=== PATIENT | male | born 1990 | race Hispanic/Latino ===

== ENCOUNTER 2018-08-01 12:53 | Emergency (ER) | payer SELFPAY ==
[2018-08-01] MEDS ORDERED: KETOROLAC 30 MG/ML INJ ONE (14:15)
--- NOTE | 2018-08-01 14:41 | RAD REPORT ---
EXAM DESCRIPTION: CT - Stone Protocol - 08/01/2018 2:35 pm CLINICAL HISTORY: Flank pain. Flank pain COMPARISON: CT ABD PELVIS W CONTRAST dated 01/12/2014 TECHNIQUE: Axial images were obtained without oral or IV contrast. Lack of contrast limits solid org an and vascular assessment. The [id number] spans the entirety of the system partially obscuring uppermost abdomen and lung bases. Coronal reformatted images were obtained and reviewed. All CT scans are performed using dose optimization technique as appropriate and may include automated exposure control or mA/KV adjustment according to patient size. FINDINGS: The lower lung riley are clear. Imaged portions of the liver and spleen show no suspicious findings on non-contrast imaging. The panc reas and adrenal glands are normal. No pathologic lymphadenopathy in the abdomen or pelvis. No urinary tract stones or obstructive uropathy. No bowel obstruction, free air, free fluid or abscess. Normal appendix noted. No significant bony abnormality. Small fat containing right inguinal hernia. IMPRESSION: No urinary tract stones or obstructive uropathy.
[2018-08-01 15:03] LABS: Urine Blood TRACE (NEG); Urine Glucose NEGATIVE (NEG); Urine Protein 1+ (NEG); Urine pH 8.5 (5.0-7.0)
--- NOTE | 2018-08-01 16:12 | ER ---
Nurse's Notes [facility] Name: Jim Cope Jr Age: 27 yrs Sex: Male : 1990 Arrival Date: 08/01/2018 Time: 12:57 Bed 30 Private MD: Diagnosis: Cough;Low back pain Presentation: 08/01 12:58 Presenting complaint: Patient states: low back pain, denies dysuria, injury. Transition sv of care: patient was not received from another setting of care. Onset of symptoms was August 01, 2018. Care prior to arrival: None. 12:58 Method Of Arrival: Ambulatory sv 12:58 Acuity: SILVESTRE 4 sv 15:21 Risk Assessment: Do you want to hurt yourself or someone else? Patient reports no mg2 desire to harm self or others. Initial Sepsis Screen: Does the patient meet any 2 criteria? No. Patient's initial sepsis screen is negative. Does the patient have a suspected source of infection? No. Patient's initial sepsis screen is negative. Historical: - Allergies: 12:59 No Known Allergies; sv - PSHx: 12:59 Facial surgery; Hand surgery; sv - Immunization history:: Flu vaccine is not up to date. - Social history:: Smoking status: Patient uses tobacco products, smokes one-half pack cigarettes per day. - Ebola Screening: : No symptoms or risks identified at this time. Screenin:21 Abuse screen: Denies threats or abuse. Denies injuries from another. Nutritional mg2 screening: No deficits noted. Tuberculosis screening: No symptoms or risk factors identified. Fall Risk None identified. Assessment: 15:24 General: Appears in no apparent distress. comfortable, Behavior is calm, cooperative. mg2 Pain: Complains of pain in mid back area Pain does not radiate. Pain currently is 2 out of 10 on a pain scale. Quality of pain is described as aching, Pain began gradually. Neuro: Level of Consciousness is awake, alert, obeys commands, Oriented to person, place, time, situation. Cardiovascular: Capillary refill < 3 seconds Patient's skin is warm and dry. Respiratory: Airway is patent Respiratory effort is even, unlabored, Respiratory pattern is regular, symmetrical. GI: No signs and/or symptoms were reported involving the gastrointestinal system. : No signs and/or symptoms were reported regarding the genitourinary system. EENT: No signs and/or symptoms were reported regarding the EENT system. Derm: Skin is intact, is healthy with good turgor, Skin is pink, warm \T\ dry. normal. Musculoskeletal: Reports pain in mid back area. 16:27 Reassessment: Patient appears in no apparent distress at this time. Patient and/or mg2 family updated on plan of care and expected duration. Pain level reassessed. Patient is alert, oriented x 3, equal unlabored respirations, skin warm/dry/pink. Vital Signs: 12:59 BP 124 / 73; Pulse 98; Resp 20; Temp 99.2; Pulse Ox 99% ; Weight 83.01 kg; Height 5 ft. sv 9 in. (175.26 cm); Pain 7/10; 15:23 BP 130 / 62; Pulse 89; Resp 18; Pulse Ox 98% on R/A; Pain 2/10; mg2 16:27 BP 125 / 78; Pulse 80; Resp 18; Pulse Ox 100% on R/A; Pain 0/10; mg2 12:59 Body Mass Index 27.02 (83.01 kg, 175.26 cm) sv ED Course: 12:57 Patient arrived in ED. mr 12:59 Triage completed. sv 13:00 Arm band placed on Patient placed in an exam room, Patient notified of wait time. sv 13:22 Masoud Jordan, ABNER is Primary Nurse. ja1 13:40 Marisa Alfonso FNP-C is PHCP. snw 13:40 Ezekiel Brice MD is Attending Physician. snw 14:30 Urine collected: clean catch specimen, clear, nevin colored, Amount Voided: 60mL. jp3 14:34 CT completed. Patient tolerated procedure well. Patient moved to CT via wheelchair. vm2 Patient moved back from CT. 14:51 Stone Protocol In Process Unspecified. EDMS 15:21 Patient has correct armband on for positive identification. Pulse ox on. NIBP on. mg2 15:21 No provider procedures requiring assistance completed. Patient did not have IV access mg2 during this emergency room visit. Administered Medications: 14:08 Drug: TORadol 60 mg Route: IM; Site: left deltoid; ja1 14:39 Follow up: Response: No adverse reaction; Pain is decreased ja1 Outcome: 16:04 Discharge ordered by . snw 16:28 Discharged to home ambulatory, with family. mg2 16:28 Condition: stable 16:28 Discharge instructions given to patient, family, Instructed on discharge instructions, follow up and referral plans. medication usage, Demonstrated understanding of instructions, follow-up care, medications, Prescriptions given X 2. 16:28 Patient left the ED. mg2 Signatures: Dispatcher [employer] EDIndira Rosado RN RN sv Marisa Alfonso, JIG GRINDER SET UP OPERATOR-C JIG GRINDER SET UP OPERATOR-Csnw GonzalezNadiya mr AraizaMarimar 2 Masoud Jordan, ABNER RN ja1 Bill Lobo RN RN mg2 Chavo Fregoso jp3
--- NOTE | 2018-08-01 16:13 | EDPHYS ---
Physician Documentation [facility] Name: Jim Cope Jr Age: 27 yrs Sex: Male : 1990 Arrival Date: 08/01/2018 Time: 12:57 Bed 30 Private MD: ED Physician Ezekiel Brice HPI: 08/01 13:58 This 27 yrs old Male presents to ER via Ambulatory with complaints of Back snw Pain. 13:58 The patient presents with pain that is acute, with no known mechanism of injury. The snw symptoms are located in the mid back area. Onset: The symptoms/episode began/occurred suddenly, and became persistent. The pain does not radiate. Associated signs and symptoms: Pertinent positives: vomiting, with pain. Severity of symptoms: At their worst the symptoms were moderate. The patient has not experienced similar symptoms in the past. Historical: - Allergies: 12:59 No Known Allergies; sv - PSHx: 12:59 Facial surgery; Hand surgery; sv - Immunization history:: Flu vaccine is not up to date. - Social history:: Smoking status: Patient uses tobacco products, smokes one-half pack cigarettes per day. - Ebola Screening: : No symptoms or risks identified at this time. ROS: 13:57 Constitutional: Negative for fever, chills, and weight loss, Eyes: Negative for injury, snw pain, redness, and discharge, ENT: Negative for injury, pain, and discharge, Neck: Negative for injury, pain, and swelling, Cardiovascular: Negative for chest pain, palpitations, and edema, Respiratory: Negative for shortness of breath, cough, wheezing, and pleuritic chest pain, Abdomen/GI: Negative for abdominal pain, nausea, vomiting, diarrhea, and constipation, : Negative for injury, bleeding, discharge, and swelling, MS/Extremity: Negative for injury and deformity, Skin: Negative for injury, rash, and discoloration, Neuro: Negative for headache, weakness, numbness, tingling, and seizure. 13:57 Back: Positive for pain at rest, pain with movement, flank pain, bilaterally. Exam: 13:57 Constitutional: This is a well developed, well nourished patient who is awake, alert, snw and in no acute distress. Head/Face: Normocephalic, atraumatic. Eyes: Pupils equal round and reactive to light, extra-ocular motions intact. Lids and lashes normal. Conjunctiva and sclera are non-icteric and not injected. Cornea within normal limits. Periorbital areas with no swelling, redness, or edema. ENT: Nares patent. No nasal discharge, no septal abnormalities noted. Tympanic membranes are normal and external auditory canals are clear. Oropharynx with no redness, swelling, or masses, exudates, or evidence of obstruction, uvula midline. Mucous membranes moist. Neck: Trachea midline, no thyromegaly or masses palpated, and no cervical lymphadenopathy. Supple, full range of motion without nuchal rigidity, or vertebral point tenderness. No Meningismus. Chest/axilla: Normal chest wall appearance and motion. Nontender with no deformity. No lesions are appreciated. Cardiovascular: Regular rate and rhythm with a normal S1 and S2. No gallops, murmurs, or rubs. Normal PMI, no JVD. No pulse deficits. Respiratory: Lungs have equal breath sounds bilaterally, clear to auscultation and percussion. No rales, rhonchi or wheezes noted. No increased work of breathing, no retractions or nasal flaring. Abdomen/GI: Soft, non-tender, with normal bowel sounds. No distension or tympany. No guarding or rebound. No evidence of tenderness throughout. Skin: Warm, dry with normal turgor. Normal color with no rashes, no lesions, and no evidence of cellulitis. MS/ Extremity: Pulses equal, no cyanosis. Neurovascular intact. Full, normal range of motion. Neuro: Awake and alert, GCS 15, oriented to person, place, time, and situation. Cranial nerves II-XII grossly intact. Motor strength 5/5 in all extremities. Sensory grossly intact. Cerebellar exam normal. Normal gait. Psych: Awake, alert, with orientation to person, place and time. Behavior, mood, and affect are within normal limits. 13:57 Back: pain, that is moderate, that is severe, of the mid back area, ROM is normal. Vital Signs: 12:59 BP 124 / 73; Pulse 98; Resp 20; Temp 99.2; Pulse Ox 99% ; Weight 83.01 kg; Height 5 ft. sv 9 in. (175.26 cm); Pain 7/10; 15:23 BP 130 / 62; Pulse 89; Resp 18; Pulse Ox 98% on R/A; Pain 2/10; mg2 16:27 BP 125 / 78; Pulse 80; Resp 18; Pulse Ox 100% on R/A; Pain 0/10; mg2 12:59 Body Mass Index 27.02 (83.01 kg, 175.26 cm) sv MDM: 13:52 Patient medically screened. snw 16:06 Data reviewed: vital signs, nurses notes. Data interpreted: Pulse oximetry: on room air snw is 98 %. Interpretation: normal. Counseling: I had a detailed discussion with the patient and/or guardian regarding: the historical points, exam findings, and any diagnostic results supporting the discharge/admit diagnosis, lab results, radiology results, the need for outpatient follow up, to return to the emergency department if symptoms worsen or persist or if there are any questions or concerns that arise at home. Special discussion: Based on the history and exam findings, there is no indication for further emergent testing or inpatient evaluation. I discussed with the patient/guardian the need to see the primary care provider for further evaluation of the symptoms. 08/01 14:56 Order name: Urine Dipstick--Ancillary (enter results); Complete Time: 15:11 eb 08/01 13:51 Order name: CT Stone Protocol [facility] 08/01 13:51 Order name: Urine Dipstick-Ancillary (obtain specimen); Complete Time: 14:46 [facility] 08/01 14:48 Order name: Stone Protocol; Complete Time: 15:11 EDMS Administered Medications: 14:08 Drug: TORadol 60 mg Route: IM; Site: left deltoid; ja1 14:39 Follow up: Response: No adverse reaction; Pain is decreased ja1 Disposition: 17:47 Co-signature as Attending Physician, Ezekiel Brice MD. rn Disposition: 08/01/18 16:04 Discharged to Home. Impression: Cough, Low back pain. - Condition is Stable. - Discharge Instructions: Back Pain, Adult, Musculoskeletal Pain, Cough, Adult, Cryotherapy, Rehydration, Adult, Heat Therapy. - Prescriptions for Prednisone 20 mg Oral Tablet - take 2 tablet by ORAL route once daily for 5 days; 10 tablet. Albuterol Sulfate 90 mcg/actuation - inhale 1-2 puff by INHALATION route every 4-6 hours; 1 Inhaler. - Work release form, Medication Reconciliation Form, Thank You Letter, Antibiotic Education, Prescription Opioid Use form. - Follow up: Private Physician; When: 2 - 3 days; Reason: Recheck today's complaints, Continuance of care, Re-evaluation by your physician. Follow up: Emergency Department; When: As needed; Reason: Worsening of condition. Signatures: Dispatcher [employer] EDMS Indira Morgan, RN RN Marisa Jiang, CHANGE CONTROL MANAGER-C CHANGE CONTROL MANAGER-Csnw Ezekiel Brice MD MD rn Aguilar, Jose, RN RN ja1 Bill Lobo RN RN mg2 Corrections: (The following items were deleted from the chart) 16:28 16:04 08/01/2018 16:04 Discharged to Home. Impression: Cough; Low back pain. Condition mg2 is Stable. Forms are Medication Reconciliation Form, Thank You Letter, Antibiotic Education, Prescription Opioid Use. Follow up: Private Physician; When: 2 - 3 days; Reason: Recheck today's complaints, Continuance of care, Re-evaluation by your physician. Follow up: Emergency Department; When: As needed; Reason: Worsening of condition. snw
== END 2018-08-01 16:28 | disposition home or self-care (01) ==
LOC: ER 12:53
DX: R05 Cough (principal); F17.210 Nicotine dependence, cigarettes, uncomplicated
CPT/HCPCS: 74176; 76377; 81003